=== PATIENT | male | born 2000 | race African-American/Black ===

== ENCOUNTER 2025-02-14 11:21 | Emergency (ER) | payer SELFPAY ==
[2025-02-14] MEDS ORDERED: Sodium Chloride 0.9% 10 ML Syringe FLUSH PRN (13:02)
[2025-02-14] MEDS: Sodium Chloride 0.9% 10 ML Syringe FLUSH ONE (13:52)
[2025-02-14] MEDS: Iopamidol 612 MG/ML 100 ML Bottle IVPUSH ONE (13:52)
[2025-02-14 14:36] LABS: BASOPHILS ABSOLUTE AUTO 0.0 K/mm3 (0.0-0.2); BASOPHILS PERCENT AUTO 0.7 % (0.0-1.0); EOSINOPHILS ABSOLUTE AUTO 0.1 K/mm3 (0.0-0.4); EOSINOPHILS PERCENT AUTO 1.3 % (0.0-6.0); IMMATURE GRAN ABSOLUTE AUTO 0.02 K/mm3 (0.00-0.05); IMMATURE GRAN PERCENT AUTO 0.4 % (0.0-0.4); LYMPHOCYTES ABSOLUTE AUTO 1.7 K/mm3 (1.0-4.8); LYMPHOCYTES PERCENT AUTO 36.2 % (24.0-44.0); MEAN PLATELET VOLUME 11.6 fl (9.4-12.4); MONOCYTES ABSOLUTE AUTO 0.2 K/mm3 (0.0-0.8); MONOCYTES PERCENT AUTO 4.4 % (0.0-8.0); NEUTROPHILS ABSOLUTE AUTO 2.6 K/mm3 (1.8-7.7); NEUTROPHILS PERCENT AUTO 57.0 % (41.0-71.0); NRBC ABSOLUTE 0.00 (0.00-0.02); NRBC PERCENT 0.0 % (0.0-0.2); PLATELET COUNT,PLT 110 K/mm3 (150-400); RED BLOOD CELL COUNT 4.96 M/mm3 (4.52-5.90); WHITE BLOOD CELL COUNT,WBC 4.58 K/mm3 (3.9-11.3)
[2025-02-14 15:14] LABS: A/G RATIO 0.6 (1-2); ALANINE AMINOTRANSFERASE,ALT 35.0 U/L (16-63); ASPARTATE AMNIOTRANSFERASE,AST 59.0 U/L (15-37); BILIRUBIN TOTAL 0.6 mg/dL (0.2-1.0); BLOOD UREA NITROGEN,BUN 15.0 mg/dL (7-18); CARBON DIOXIDE,CO2 27.0 mEq/L (21-32); CHLORIDE,CL 102.0 mEq/L (98-107); CREATININE 0.9 mg/dL (0.7-1.3); EST CRCL DRUG DOSING (CG) 127.68 mL/min; ESTIMATED GFR 121.0 mL/min (>60); GLUCOSE RANDOM 82.0 mg/dL (70-99); POTASSIUM,K 4.3 mEq/L (3.5-5.1); PROTEIN TOTAL,TP 8.3 g/dl (6.4-8.2); SODIUM,NA 138.0 mEq/L (136-145)
== END 2025-02-14 15:51 | disposition home or self-care (01) ==
LOC: JD.ED 11:21
DX: J18.9 Pneumonia, unspecified organism (principal)
CPT/HCPCS: 36415; 71046; 71260; 80053; 85025; 86140; 86480; 87428; 99285; A9270; Q9967; 99283

== ENCOUNTER 2025-02-19 09:15 | Emergency (ER) | payer SELFPAY | END 2025-02-19 10:39 | disposition home or self-care (01) | LOC: JD.ED 09:15 | DX: J18.9 Pneumonia, unspecified organism (principal) | CPT/HCPCS: 99283; 99284 ==